=== PATIENT | male | born 1960 | race Caucasian/White ===

== ENCOUNTER 2019-01-12 08:40 | Emergency (ER) | payer BC ==
--- NOTE | 2019-01-12 09:00 | ER Document Report ---
ED Medical Screen (RME) - General Chief Complaint: Rib Pain Stated Complaint: LOW LEFT RIB CAGE PAIN Time Seen by Provider: 01/12/19 08:55 Mode of Arrival: Ambulatory Information source: Patient Notes: 58-year-old male presents to ED for complaint of pain to the left rib areas. He was recently diagnosed with mantle cell lymphoma in December. He is from [facility] near [place] and that is where his oncologist is. He is supposed to start chemo January 17. He is now visiting for the s he states that the pain in his left ribs is gotten worse and more co nstant. He states he does have an enlarged spleen with some leakage and he is concerned because the pain is gotten worse and more constant. He had a biopsy to the groin December 29. Patient states they have done CTs from his neck to his groin. I have greeted and performed a rapid initial assessment of this patient. A comprehensive ED assessment and evaluation of the patient, analysis of test results and completion of medical decision making process will be conducted by an additional ED providers. - Related Data Allergies/Adverse Reactions: amoxicillin Allergy (Verified 01/12/19 08:51) Physical Exam - Vital signs Vitals: Temp Pulse Resp BP Pulse Ox 97.8 F 101 H 24 H 132/70 H 94 01/12/19 08:47 01/12/19 08:47 01/12/19 08:47 01/12/19 08:47 01/12/19 08:47 Course - Vital Signs Vital signs: Temp Pulse Resp BP Pulse Ox 97.8 F 101 H 24 H 132/70 H 94 01/12/19 08:47 01/12/19 08:47 01/12/19 08:47 01/12/19 08:47 01/12/19 08:47
[2019-01-12 09:27] LABS: HEMATOCRIT 36.8 % (37.9-51.0); HEMOGLOBIN 11.4 g/dL (13.5-17.0); MEAN CORPUSCULAR HEMOGLOBIN 20.8 pg (27.0-33.4); MEAN CORPUSCULAR HGB CONC 30.9 g/dL (32.0-36.0); MEAN CORPUSCULAR VOLUME 67 fl (80-97); PLATELET COUNT 148 10^3/uL (150-450); RED BLOOD COUNT 5.47 10^6/uL (4.35-5.55); RED CELL DISTRIBUTION WIDTH 17.4 % (11.5-14.0); WHITE BLOOD COUNT 24.2 10^3/uL (4.0-10.5)
[2019-01-12 09:34] LABS: INTERNATIONAL RATION (INR) 0.94; PROTHROMBIN TIME 12.6 SEC (11.4-15.4)
[2019-01-12 09:35] LABS: PARTIAL THROMBOPLASTIN TIME 25.5 SEC (23.5-35.8)
[2019-01-12 09:45] LABS: ABSOLUTE LYMPHOCYTES# (MANUAL) 16.5 10^3/uL (0.5-4.7); ABSOLUTE MONOCYTES # (MANUAL) 2.2 10^3/uL (0.1-1.4); BASOPHILS % (MANUAL) 0 % (0-2); EOSINOPHILS % (MANUAL) 3 % (0-6); LYMPHOCYTES % (MANUAL) 62 % (13-45); MONOCYTES % (MANUAL) 9 % (3-13); SEGMENTED NEUTROPHILS % (MAN) 20 % (42-78); TOTAL CELLS COUNTED 100
[2019-01-12 09:46] LABS: ANISOCYTOSIS 1+; HYPOCHROMASIA SLIGHT; PLATELET COMMENT ADEQUATE; TARGET CELLS 1+
[2019-01-12 09:49] LABS: ALBUMIN 3.3 g/dL (3.5-5.0); ALKALINE PHOSPHATASE 319 U/L (38-126); ANION GAP 9 (5-19); ASPARTATE AMINO TRANSFERASE 77 U/L (17-59); BILIRUBIN,DIRECT 0.5 mg/dL (0.0-0.4); BILIRUBIN,TOTAL 0.8 mg/dL (0.2-1.3); BLOOD UREA NITROGEN 15 mg/dL (7-20); CALCIUM 9.1 mg/dL (8.4-10.2); CARBON DIOXIDE 28 mmol/L (22-30); CHLORIDE 98 mmol/L (98-107); GLUCOSE 120 mg/dL (75-110); POTASSIUM 4.2 mmol/L (3.6-5.0); TOTAL PROTEIN 6.2 g/dL (6.3-8.2)
--- NOTE | 2019-01-12 09:56 | ER Document Report ---
ED General - General Chief Complaint: Abdominal Pain Stated Complaint: LOW LEFT RIB CAGE PAIN Time Seen by Provider: 01/12/19 08:55 Mode of Arrival: Ambulatory TRAVEL OUTSIDE OF THE [place] IN LAST 30 DAYS: No - HPI Notes: Patient is a 58-year-old male with a history of recently diagnosed mantle cell lymphoma a couple weeks ago who presents complaining of increased left upper quadrant abdominal pain over the past couple days. Patient states that he does have an enlarged spleen and states that the pain is in the same area as it was before. Denies any recent injury to the area. Patient states that he has had scrotal swelling which is been ongoing for about a month, but states that he needs to have an ultrasound done before he can start his chemotherapy which is scheduled for January 17. He is from [place] and is here visiting for the holiday. He is otherwise able to eat and drink without difficulty. He is urinating normally and having normal bowel movements. Patient does report that there was some fluid around the spleen on a previous CT and is worried about it worsening as well. Denies any headache, fever, neck pain, URI, sore throat, chest pain, palpitations, syncope, cough, shortness of breath, wheeze, dyspnea, nausea/vomiting/diarrhea, urinary retention, dysuria, hematuria, or rash. Oncologist: Dr. Danilo Gilmore [facility] #[phone] - Related Data Allergies/Adverse Reactions: amoxicillin Allergy (Verified 01/12/19 08:51) Past Medical History - General Information source: Patient - Social History Smoking Status: Unknown if Ever Smoked Chew tobacco use (# tins/day): No Frequency of alcohol use: Heavy Drug Abuse: None Family History: Reviewed & Not Pertinent Patient has suicidal ideation: No Patient has homicidal ideation: No Review of Systems - Review of Systems -: Yes All other systems reviewed and negative Physical Exam - Vital signs Vitals: Temp Pulse Resp BP Pulse Ox 97.8 F 101 H 24 H 132/70 H 94 01/12/19 08:47 01/12/19 08:47 01/12/19 08:47 01/12/19 08:47 01/12/19 08:47 - Notes Notes: PHYSICAL EXAMINATION: GENERAL: Well-appearing, well-nourished and in no acute distress. HEAD: Atraumatic, normocephalic. EYES: Pupils equal round and reactive to light, extraocular movements intact, sclera anicteric, conjunctiva are normal. ENT: Nares patent and without discharge. oropharynx clear without exudates. No tonsilar hypertrophy or erythema. Moist mucous membranes. LUNGS: Breath sounds clear to auscultation bilaterally and equal. No wheezes rales or rhonchi. HEART: Regular rate and rhythm without murmurs, rubs, gallops. ABDOMEN: Soft, nondistended abdomen. No guarding, no rebound. Normal bowel sounds present. No CVA tenderness bilaterally. + tenderness LUQ area. Yanez neg. No tenderness at McBurney or LLQ. Musculoskeletal: FROM to passive/active. Strength 5+/5. Extremities: No cyanosis, clubbing, or edema b/l. Peripheral pulses 2+. Capillary refill less than 3 seconds. NEUROLOGICAL: Cranial nerves grossly intact. Normal speech, normal gait. PSYCH: Normal mood, normal affect. SKIN: Warm, Dry, normal turgor, no rashes or lesions noted. Course - Re-evaluation Re-evalutation: 01/12/19 09:58 I did review the impression from CT scan of abd/pelv on 12/28 at the other facility: "1. Extensive lymphadenopathy is seen in the upper abdomen, retroperitoneum, and pelvis as well as both inguinal regions. Findings are most concerning for lymphoma or other lymphoproliferative disorder. The right inguinal lymph node would be readily amenable to percutaneous tissue sampling for tissue diagnosis as clinically warranted. 2. The spleen is enlarged with a linear area of decreased signal seen within it superiorly and posteriorly with a small amount of perisplenic fluid. Finding is concerning for spinous laceration or splenic rupture. Please correlate clinically. 3. Bilateral testicular hydroceles appear to be present and are only partially imaged. If there is ongoing concern regarding testicular pathology, consider te sticular ultrasound." 01/12/19 10:[address] Hernandez. We will order CT with PO/IV contrast to further evaluate and obtain the scrotal US. 01/12/19 12:[address] Solis regarding splenic infarct. Pt does not need to be admitted. Best thing is to start the chemo and f/u with his Oncologist. I left a voice mail on Dr. Gilmore's cell phone (pt's oncologist). 01/12/19 13:43 I was able to speak with Dr. Gilmore. He has no further recommendations at this time, but to make sure he started his steroids. Reviewed labs with him as well which are acceptable. 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 Vitals are currently acceptable. PE is otherwise unremarkable. Patient is nontoxic-appearing and is able to tolerate p.o. without difficulty. Labs acceptable. Imaging as r esulted. No further work-up warranted. Low suspicion/risk for acute appendicitis, bowel obstruction, acute cholecystitis, perforated diverticulitis, incarcerated hernia, pancreatitis, perforated ulcer, peritonitis, sepsis, testicular torsion, or other systemic emergent condition at this time. Patient is aware that his condition can change from initial presentation and he needs to monitor symptoms closely and seek medical attention if any acute changes. Conservative measures otherwise for symptoms. Recheck with PCM in 2-3 days. Keep appointment with oncology. Return to the ED with any worsening/concerning symptoms otherwise as reviewed in discharge. Patient is in agreement. - Vital Signs Vital signs: Temp Pulse Resp BP Pulse Ox 98.0 F 18 L 18 138/70 H 94 01/12/19 13:46 01/12/19 13:46 01/12/19 13:46 01/12/19 13:46 01/12/19 08:47 - Laboratory Result Diagrams: 01/12/19 09:16 01/12/19 09:16 Laboratory results interpreted by me: 01/12/19 01/12/19 09:16 09:16 WBC 24.2 H Hgb 11.4 L Hct 36.8 L MCV 67 L MCH 20.8 L MCHC 30.9 L RDW 17.4 H Plt Count 148 L Seg Neuts % (Manual) 20 L Lymphocytes % (Manual) 62 H Abs Lymphs (Manual) 16.5 H Abs Monocytes (Manual) 2.2 H Absolute Eos (Manual) 0.7 H Sodium 135.4 L Glucose 120 H Direct Bilirubin 0.5 H AST 77 H Alkaline Phosphatase 319 H Total Protein 6.2 L Albumin 3.3 L Discharge - Discharge Clinical Impression: Splenic infarct Abdominal pain Qualifiers: Abdominal location: left upper quadrant Qualified Code(s): R10.12 - Left upper quadrant pain Condition: Stable Disposition: HOME, SELF-CARE Additional Instructions: Maintain adequate fluid and food intake Healthy diet tylenol/Motrin if needed Make sure you are taking your steroids as directed by your oncologist Monitor for any worsening symptoms Make sure you are staying hydrated enough to urinate and have normal BM's Recheck with your PCM in 2-3 days Keep appointment with oncology* Return to the ED with any worsening symptoms and/or development of fever, headache, chest pain, palpitations, syncope, shortness of breath, trouble br eathing, abdominal pain, n/v/d, blood in stool/urine, weakness, or other worsening symptoms that are concerning to you. Prescriptions: Morphine Sulfate [Morphine Ir 15 Mg Tablet] 15 mg PO TID #15 tablet Forms: Elevated Blood Pressure Referrals: Dr. Danilo Gilmore [Other] - Follow up in 3-5 days JOSE ENRIQUE SOLIS MD [ACTIVE STAFF] - Follow up as needed
--- NOTE | 2019-01-12 12:27 | RADIOLOGY REPORT (SQ) ---
EXAM DESCRIPTION: CT ABD/PELVIS WITH IV ORAL COMPLETED DATE/TIME: 01/12/2019 11:50 am REASON FOR STUDY: recent lymphoma/splenomegaly, LUQ pain COMPARISON: None. TECHNIQUE: CT scan of the abdomen and pelvis performed using helical scanning technique with dynamic intravenous contrast injection. Patient drank oral contrast. Images reviewed with lung, soft tissue , and bone windows. Reconstructed coronal and sagittal MPR images reviewed. Delayed images for evalua tion of the urinary system also acquired. All images stored on PACS. All CT scanners at this facility use dose modulation, iterative reconstruction, and/or weight based d osing when appropriate to reduce radiation dose to as low as reasonably achievable (ALARA). [facility]: Dose Right [facility]: CareDose [facility]: Dose Right [facility]: Teradose 4D [facility]: [employer] CONTRAST TYPE AND DOSE: contrast/concentration: Isovue 350.00 mg/ml; Total Contrast Delivered: 100.0 ml; Total Saline Delivered: 60.0 ml RENAL FUNCTION: Creatinine 0.8 RADIATION DOSE: CT Rad equipment meets quality standard of care and radiation dose reduction techniq ues were employed. CTDIvol: 16.9 - 19.2 mGy. DLP: 2040 mGy-cm.. LIMITATIONS: None. FINDINGS: LOWER CHEST: Moderate bilateral pleural effusions are present. Minimal bibasilar atelecta sis. LIVER: Normal size. No masses. No dilated ducts. SPLEEN: 18 cm in length. Peripheral wedge-shaped defects worrisome for splenic infarct on axial imag e 20-26. No left upper quadrant hemorrhage or subcapsular hematoma. PANCREAS: No masses. No significant calcifications. No adjacent inflammation or peripancreatic fluid collections. Pancreatic duct not dilated. GALLBLADDER: Contracted, not well seen ADRENAL GLANDS: No significant masses or asymmetry. RIGHT KIDNEY AND URETER: No solid masses. 2 cm right midpole renal cortical cyst. No significant ca lcifications. No hydronephrosis or hydroureter. LEFT KIDNEY AND URETER: No solid masses. No significant calcifications. No hydronephrosis or hydro ureter. AORTA AND VESSELS: No aneurysm. No dissection. Renal arteries, SMA, celiac without stenosis. RETROPERITONEUM: There is diffuse retroperitoneal adenopathy extending into the mesenteries. Index l ymph nodes are as follows: Portacaval space 5.3 x 3.8 cm lymph node axial image 32/101 Left para aortic lymph node conglomerate 3.8 x 2.8 cm axial image 47/101 Right external iliac cystic necrotic lymph nodes 5.6 x 2.7 cm axial image 75/101 Right inguinal lymph node 5 x 4.7 cm in size with central necrosis, on axial image 90/101 BOWEL AND PERITONEAL CAVITY: Patient drank oral contrast. No CT evidence of bowel obstruction or jael e intraperitoneal air or free fluid. APPENDIX: Normal. PELVIS: Pelvic adenopathy. Trace right lower quadrant and cul-de-sac free fluid. Normal bladder. ABDOMINAL WALL: No masses. No hernias. Third-spacing of fluid with edema along the abdominal wall BONES: No significant or acute findings. OTHER: No other significant finding. IMPRESSION: Splenomegaly with splenic infarct Adenopathy compatible with clinical history of lymphoma Third-spacing of fluid along the abdominal wall with trace free pelvic fluid in the cul-de-sac and mo derate bilateral pleural effusions TECHNICAL DOCUMENTATION: JOB ID: [id number] Quality ID # [id number]: Final reports with documentation of one or more dose reduction techniques (e.g., Au tomated exposure control, adjustment of the mA and/or kV according to patient size, use of iterative reconstruction technique) 2010 [employer]- All Rights Reserved Reading location - IP/workstation name: [email or web address]
[2019-01-12] MEDS ORDERED: OXYCODONE HCL IR 5 MG TABLET PO ONE (13:44)
[2019-01-12 13:49] VITALS: BP 138/70
--- NOTE | 2019-01-12 13:58 | RADIOLOGY REPORT (SQ) ---
EXAM DESCRIPTION: U/S SCROTUM W/DOPPLER COMPLETED DATE/TIME: 01/12/2019 12:51 pm REASON FOR STUDY: scrotal swelling, recent dx of lymphoma COMPARISON: None. TECHNIQUE: Static and realtime abad scale imaging of the scrotum and testes. Selected color Doppler and spectral images recorded to document blood flow. LIMITATIONS: None. FINDINGS: RIGHT: TESTICLE: Normal size. Normal echotexture. Normal blood flow. No mass. EPIDIDYMIS: Normal. HYDROCELE OR VARICOCELE: Small hydrocele. No varicocele. HERNIA OR EXTRA-TESTICULAR MASS: No. OTHER: No other significant finding. LEFT: TESTICLE: Normal size. Normal echotexture. Normal blood flow. No mass. EPIDIDYMIS: Normal. HYDROCELE OR VARICOCELE: Small hydrocele. No varicocele HERNIA OR EXTRA-TESTICULAR MASS: No. OTHER: No other significant finding. IMPRESSION: Small bilateral hydroceles. No testicular mass. TECHNICAL DOCUMENTATION: JOB ID: [id number] [employer] All Rights Reserved Reading location - IP/workstation name: [email or web address]
== END 2019-01-12 14:55 | disposition home or self-care (01) ==
LOC: ER 08:40
DX: D73.5 Infarction of spleen (principal); C83.10 Mantle cell lymphoma, unspecified site; R10.12 Left upper quadrant pain; N50.89 Other specified disorders of the male genital organs; Z88.0 Allergy status to penicillin
CPT/HCPCS: 36415; 74177; 76870; 80053; 85025; 85610; 85730; 93976; 99284